=== PATIENT | male | born 1940 | race Caucasian/White ===

== ENCOUNTER 2021-03-28 09:14 | Observation (INO) | payer MEDICARE ==
[~2021-03-28] VITALS: Ht 177.8 cm; Wt 104.3 kg
[~2021-03-28 09:14] MED LIST: CHOL100046 PO; CYAN100019 PO; DILT180C53 PO; FURO40TA4 PO; GABA-532 PO; HYDR-3972 PO; METO-395 PO; MULT-620 PO; POTA-207 PO
[2021-03-28 10:55] LABS: BASOPHILS # (AUTO) 0.1 X10'3 (0-0.2); BASOPHILS % (AUTO) 0.4 % (0-1); EOSINOPHILS # (AUTO) 0.1 X10'3 (0-0.9); EOSINOPHILS % (AUTO) 0.7 % (0-6); HEMATOCRIT 44.8 % (42.0-52.0); HEMOGLOBIN 15.4 g/dl (14.0-17.9); LYMPHOCYTES # (AUTO) 3.8 X10'3 (1.1-4.8); LYMPHOCYTES % (AUTO) 25.8 % (21-51); MEAN CORPUSCULAR HEMOGLOBIN 32.5 PG (27.0-31.0); MEAN CORPUSCULAR HGB CONC 34.3 g/dL (33.0-36.5); MEAN CORPUSCULAR VOLUME 94.6 FL (78-98); MONOCYTES # (AUTO) 0.6 X10'3 (0-0.9); NEUTROPHILS # (AUTO) 10.1 X10'3 (1.8-7.7); NEUTROPHILS % (AUTO) 69.1 % (42-75); PLATELET COUNT 207 X10'3 (140-440); RED BLOOD COUNT 4.74 X10'6 (4.70-6.10); RED CELL DISTRIBUTION WIDTH 13.6 % (11.5-14.5); WHITE BLOOD COUNT 14.6 X10'3 (4.5-11.0)
[2021-03-28 11:09] LABS: ALANINE AMINOTRANSFERASE 25 U/L (12-78); ALBUMIN 3.9 G/DL (3.4-5.0); ALBUMIN/GLOBULIN RATIO 1.1 (1.1-1.5); ALKALINE PHOSPHATASE 96 IU/L (46-116); ANION GAP 10 (8-16); ASPARTATE AMINO TRANSFERASE 26 U/L (10-37); BILIRUBIN,TOTAL 1.7 MG/DL (0.1-1.0); BLOOD UREA NITROGEN 16 MG/DL (7-18); BUN/CREATININE RATIO 13.4 (5.4-32.0); CALCIUM 8.8 MG/DL (8.5-10.1); CHLORIDE 106 MMOL/L (99-107); CREATININE 1.19 MG/DL (0.60-1.10); GLUCOSE 108 MG/DL (70-104); POTASSIUM 3.6 MMOL/L (3.5-5.1); SODIUM 144 MMOL/L (135-145); TOTAL CARBON DIOXIDE 27.7 MMOL/L (24-32); TOTAL PROTEIN 7.5 G/DL (6.4-8.2); eGFR 59 ML/MIN
[2021-03-28] MEDS ORDERED: normal saline 1000ML IV soln IVB ONE ×2 (12:40→13:50)
[2021-03-28] MEDS ORDERED: aspirin 81mg tab.chew PO ONE (12:40)
[2021-03-28] MEDS ORDERED: nitroGLYCERIN 0.4mg SUBLingual tab SL PRN (12:40)
[2021-03-28] MEDS ORDERED: iohexol 300mg/ml 100ml inj. ONE (12:59)
[2021-03-28] MEDS ORDERED: piperacillin/tazo 3.375gm/50ml 50 ML IV ONE (13:50)
[2021-03-28] MEDS ORDERED: sincalide inj 2 MCG in normal saline 50ml IV soln 50 ML IV ONE (14:25)
[2021-03-28] MEDS ORDERED: morphine 2 MG/ML inj. syringe IV PRN ×2 (15:20)
[2021-03-28] MEDS ORDERED: acetaminophen 325mg tablet PO PRN ×2 (15:20)
[2021-03-28] MEDS ORDERED: magnesium hydroxide 30ml (MOM) UD suspension PO PRN (15:20)
[2021-03-28] MEDS ORDERED: HYDROcodone/acetaminophen 5mg/325mg tablet PO PRN (15:20)
[2021-03-28] MEDS ORDERED: mag hydrox/Alum hydrox/simeth 30ml oral suspension PO PRN (15:20)
[2021-03-28] MEDS ORDERED: HYDROcodone/acetaminophen 10/325mg tab PO PRN ×2 (15:20→17:35)
[2021-03-28] MEDS ORDERED: ondansetron/PF 4mg/2ml inj IV PRN (15:20)
[2021-03-28] MEDS ORDERED: LEVO100T9 PO (16:03)
[2021-03-28] MEDS ORDERED: WARF-55 PO (17:19)
[2021-03-28] MEDS ORDERED: DILT180C53 PO (17:22)
[2021-03-28] MEDS ORDERED: GABA-532 PO (17:22)
[2021-03-28 18:36] LABS: LIPASE < 50 U/L (73-393)
[2021-03-28] MEDS ORDERED: warfarin 5mg tablet PO ONE (21:00)
--- NOTE | 2021-03-28 21:25 | NUR ---
CALLED PHARMACY CONCERNING PT'S COUMADIN. THEY ARE GETTING MED READY
[2021-03-28] MEDS: gabapentin 300mg capsule PO SCH (21:30)
[2021-03-28] MEDS: diltiazem CD 180mg cap (once-daily) PO SCH (21:30)
[2021-03-28] MEDS: docusate sod 100mg capsule PO SCH (21:30)
--- NOTE | 2021-03-28 22:00 | NUR ---
Received report from [facility] in the ER, patient arrived at the PCU unit at about 2245. Vital signs were check and patient was in a stable condition. No signs of distress was noted.
[2021-03-28 23:00] VITALS: BP 136/70
[2021-03-29 02:00] VITALS: BP 128/74
--- NOTE | 2021-03-29 06:29 | NUR ---
Problems reprioritized. Patient report given, questions answered & plan of care reviewed with Maude.
[2021-03-29 07:00] VITALS: BP 132/61
[2021-03-29 07:03] LABS: BASOPHILS % (AUTO) 0.5 % (0-1); EOSINOPHILS # (AUTO) 0.1 X10'3 (0-0.9); HEMOGLOBIN 13.6 g/dl (14.0-17.9); LYMPHOCYTES # (AUTO) 2.6 X10'3 (1.1-4.8); LYMPHOCYTES % (AUTO) 26.8 % (21-51); MEAN CORPUSCULAR HEMOGLOBIN 32.9 PG (27.0-31.0); MEAN CORPUSCULAR VOLUME 94.1 FL (78-98); MEAN PLATELET VOLUME 8.3 FL (7.4-10.4); MONOCYTES # (AUTO) 0.7 X10'3 (0-0.9); MONOCYTES % (AUTO) 7.5 % (2-12); NEUTROPHILS # (AUTO) 6.1 X10'3 (1.8-7.7); NEUTROPHILS % (AUTO) 64.2 % (42-75); PLATELET COUNT 179 X10'3 (140-440); RED BLOOD COUNT 4.14 X10'6 (4.70-6.10); RED CELL DISTRIBUTION WIDTH 13.5 % (11.5-14.5); WHITE BLOOD COUNT 9.5 X10'3 (4.5-11.0)
--- NOTE | 2021-03-29 07:21 | NUR ---
Patient in room PCU 3012. I have received report from Roger GALLO and had the opportunity to ask questions and assume patient care.
[2021-03-29 07:43] LABS: ALANINE AMINOTRANSFERASE 15 U/L (12-78); ALBUMIN 3.1 G/DL (3.4-5.0); ALBUMIN/GLOBULIN RATIO 0.9 (1.1-1.5); ALKALINE PHOSPHATASE 76 IU/L (46-116); ANION GAP 9 (8-16); ASPARTATE AMINO TRANSFERASE 25 U/L (10-37); BILIRUBIN,TOTAL 2.6 MG/DL (0.1-1.0); BLOOD UREA NITROGEN 11 MG/DL (7-18); BUN/CREATININE RATIO 10.2 (5.4-32.0); CALCIUM 8.5 MG/DL (8.5-10.1); CHLORIDE 104 MMOL/L (99-107); CREATININE 1.08 MG/DL (0.60-1.10); GLUCOSE 95 MG/DL (70-104); SODIUM 139 MMOL/L (135-145); TOTAL CARBON DIOXIDE 25.9 MMOL/L (24-32); TOTAL PROTEIN 6.4 G/DL (6.4-8.2); eGFR 65 ML/MIN
[2021-03-29 07:44] LABS: POTASSIUM 3.4 MMOL/L (3.5-5.1)
[2021-03-29] MEDS ORDERED: levoTHYROXINE 100mcg tablet PO SCH (08:00)
[2021-03-29] MEDS ORDERED: cholecalciferol (vitamin D3) 1,000 unit (25mcg) tablet PO SCH (08:00)
[2021-03-29] MEDS ORDERED: cyanocobalamin 500mcg tablet PO SCH (08:00)
[2021-03-29] MEDS ORDERED: potassium Cl 20 mEq SR tablet PO SCH (08:00)
[2021-03-29] MEDS ORDERED: metoprolol succinate 25mg (24-HOUR) SR. Tablet PO SCH (08:00)
[2021-03-29] MEDS ORDERED: furosemide 40mg tablet PO SCH (08:00)
[2021-03-29] MEDS ORDERED: multivitamins, therapeutics tablet PO SCH (08:00)
[2021-03-29] MEDS: docusate sod 100mg capsule PO SCH (08:44)
[2021-03-29] MEDS: diltiazem CD 180mg cap (once-daily) PO SCH (08:44)
[2021-03-29] MEDS: gabapentin 300mg capsule PO SCH (08:46)
--- NOTE | 2021-03-29 11:59 | NUR ---
patient is stable for discharge per MD orders. All discharge instructions reviewed with patient and all questions answered. Follow up appointment per patient's . PIV discontinued, cannula intact. audience development manager discontinued. Belongings collected and sent with patient. wheeled to lobby via wheelchair, comfortable, not in any distress.
--- NOTE | 2021-03-29 12:14 | NUR ---
discharge instructions were given and explained to patient and patient's prior to discharge.
== END 2021-03-29 12:25 | disposition home or self-care (01) ==
LOC: ER 09:15 → ED HOLD 15:19 → PCU 3S 23:10
PROVIDERS: ADMIT Internal Medicine; ATTEND Internal Medicine
DX: R07.89 Other chest pain (principal); Z20.822 Contact with and (suspected) exposure to COVID-19; R10.13 Epigastric pain; K80.10 Calculus of gallbladder with chronic cholecystitis without obstruction; I48.91 Unspecified atrial fibrillation; J18.1 Lobar pneumonia, unspecified organism; G62.9 Polyneuropathy, unspecified; I11.0 Hypertensive heart disease with heart failure; I50.9 Heart failure, unspecified; E89.0 Postprocedural hypothyroidism; D68.2 Hereditary deficiency of other clotting factors; Z79.01 Long term (current) use of anticoagulants; Z79.899 Other long term (current) drug therapy; Z96.619 Presence of unspecified artificial shoulder joint
CPT/HCPCS: 36415; 71045; 74177; 78226; 80053; 83605; 83690; 83880; 84145; 84484; 85025; 85610; 87040; 87081; 87635; 93005; 96365; 96366; 99285; A9537; G0378; J2543; J7030; Q9967

== ENCOUNTER 2023-02-04 06:33 | Day surgery (SDC) | payer MEDICARE ==
[2023-01-31 14:18] LABS: BASOPHILS # (AUTO) 0.1 X10'3 (0-0.2); EOSINOPHILS # (AUTO) 0.1 X10'3 (0-0.9); EOSINOPHILS % (AUTO) 0.8 % (0-6); MEAN CORPUSCULAR HEMOGLOBIN 32.3 PG (27.0-31.0)
[2023-01-31 14:19] LABS: BASOPHILS % (AUTO) 0.6 % (0-1); HEMATOCRIT 45.5 % (42.0-52.0); HEMOGLOBIN 15.3 g/dl (14.0-17.9); LYMPHOCYTES # (AUTO) 8.3 X10'3 (1.1-4.8); LYMPHOCYTES % (AUTO) 49.9 % (21-51); MEAN CORPUSCULAR HGB CONC 33.7 g/dL (33.0-36.5); MEAN CORPUSCULAR VOLUME 96.1 FL (78-98); MEAN PLATELET VOLUME 8.2 FL (7.4-10.4); MONOCYTES # (AUTO) 0.6 X10'3 (0-0.9); MONOCYTES % (AUTO) 3.7 % (2-12); NEUTROPHILS # (AUTO) 7.5 X10'3 (1.8-7.7); PLATELET COUNT 239 X10'3 (140-440); RED BLOOD COUNT 4.73 X10'6 (4.70-6.10); RED CELL DISTRIBUTION WIDTH 13.9 % (11.5-14.5); WHITE BLOOD COUNT 16.6 X10'3 (4.5-11.0)
[2023-01-31 14:29] LABS: APTT 30 SECONDS (22-32); INR 1.1 INR; PROTHROMBIN TIME 11.4 SECONDS (9.0-12.0)
[2023-01-31 14:33] LABS: ALBUMIN 3.4 G/DL (3.4-5.0); ANION GAP 7 (8-16); BLOOD UREA NITROGEN 13 MG/DL (7-18); BUN/CREATININE RATIO 10.7 (10.0-20.0); CALCIUM 8.9 MG/DL (8.5-10.1); CHLORIDE 104 MMOL/L (99-107); CHOL/HDL RATIO 4.3 (0.00-4.99); CHOLESTEROL 160 MG/DL (0-200); CREATININE 1.21 MG/DL (0.60-1.10); GLUCOSE 131 MG/DL (70-104); HDL CHOLESTEROL 37 MG/DL (35-60); LDL CHOLESTEROL 95 MG/DL (50-100); POTASSIUM 3.6 MMOL/L (3.5-5.1); SODIUM 140 MMOL/L (135-145); TOTAL CARBON DIOXIDE 29.3 MMOL/L (24-32); TRIGLYCERIDES 211 MG/DL (20-135); eGFR 57 ML/MIN
[2023-01-31 18:05] LABS: PLATELET ESTIMATE NORMAL; TOTAL CELLS COUNTED 100
[2023-01-31 18:06] LABS: SMUDGE CELLS 1+
[~2023-02-04] VITALS: Ht 177.8 cm; Wt 102.6 kg
[2023-02-04] VITALS (14 sets, daily range): BP systolic 119–138; BP diastolic 64–77; PULSE 70–74; RESP 11–20; TEMP 98; O2SAT 89–97
[~2023-02-04 06:33] MED LIST changes: +LEVO100T9 PO; +WARF-55 PO
[2023-02-04] MEDS ORDERED: diphenhydrAMINE 25mg capsule PO PRN (06:50)
[2023-02-04] MEDS ORDERED: normal saline 1,000 ML IV SCH (06:50)
[2023-02-04] MEDS ORDERED: LORazepam 0.5 MG tablet PO PRN (06:50)
[2023-02-04] MEDS ORDERED: LEVO150T8 PO (06:56)
[2023-02-04] MEDS ORDERED: WARF1TAB83 PO (06:59)
[2023-02-04] MEDS ORDERED: ENOX100D5 SQ (07:03)
[2023-02-04] MEDS ORDERED: fentaNYL/PF 50MCG/1 ML 2ML syringe ONE (08:05)
[2023-02-04] MEDS ORDERED: LIDOcaine 1% (10mg/ml) 2ml vial ONE (08:05)
[2023-02-04] MEDS ORDERED: verapamil 2.5 mg/ml inj IV ONE (08:05)
[2023-02-04] MEDS ORDERED: midazolam 1 mg/ML 2ml injection ONE (08:05)
[2023-02-04] MEDS ORDERED: iohexol 350MG/ML 100ml bottle IV ONE (08:06)
[2023-02-04] MEDS ORDERED: heparin 1,000unit/ml 10ml vial 10 ML ONE (08:06)
[2023-02-04] MEDS ORDERED: nitroGLYCERIN 500mcg/5mL D5W 5 ML IV ONE (08:16)
[2023-02-04] MEDS ORDERED: LIDOcaine 1% (10mg/ml)w/preservative inj. 20ml MDV ONE (09:27)
[2023-02-04] MEDS ORDERED: ondansetron/PF 4mg/2ml inj IV PRN (10:40)
[2023-02-04] MEDS ORDERED: HYDROcodone/acetaminophen 10/325mg tab PO PRN (10:40)
[2023-02-04] MEDS ORDERED: proCHLORperazine 10 MG/2 ml inj IV PRN (10:40)
[2023-02-04] MEDS ORDERED: HYDROcodone/acetaminophen 5mg/325mg tablet PO PRN (10:40)
[2023-02-04] MEDS ORDERED: OXAZEpam 15mg capsule PO PRN (10:40)
[2023-02-04 11:58] LABS: ISTAT HGB ART 11.9 g/dl (14.0-17.9); ISTAT Hct ART 35 %PCV (42-52); ISTAT O2 SATURATION ARTERIAL 96 % (95-98); ISTAT SOURCE BLNK
[2023-02-04 11:58] LABS: ISTAT HGB MIX 11.9 g/dl (14.0-17.9); ISTAT HGB MIX 12.6 g/dl (14.0-17.9); ISTAT Hct MIX 35 %PCV (42-52); ISTAT Hct MIX 37 %PCV (42-52); ISTAT O2 SATURATION MIX VENOUS 60 % (60-80); ISTAT O2 SATURATION MIX VENOUS 80 % (60-80); ISTAT SOURCE BLNK
[2023-02-04] MEDS ORDERED: gabapentin 300mg capsule PO ONE (13:50)
== END 2023-02-04 17:00 | disposition home or self-care (01) ==
LOC: SSTAY O 06:33
PROVIDERS: ATTEND Internal Medicine Interventional Cardiology
DX: I35.0 Nonrheumatic aortic (valve) stenosis (principal); I50.9 Heart failure, unspecified; I48.91 Unspecified atrial fibrillation; I42.9 Cardiomyopathy, unspecified; Z79.01 Long term (current) use of anticoagulants; Z79.899 Other long term (current) drug therapy; Z98.890 Other specified postprocedural states; I48.20 Chronic atrial fibrillation, unspecified; Z86.718 Personal history of other venous thrombosis and embolism; Z91.040 Latex allergy status
CPT/HCPCS: 36415; 80048; 80061; 82803; 85014; 85025; 85610; 85730; 93005; 93458; 99152; 99153; A6258; J1644; J2250; J3010; J3490; J7030; Q0163; Q9967; 85007; A6402; C1751; C1894

== ENCOUNTER 2023-05-02 10:57 | Outpatient (CLI) | payer MEDICARE ==
[~2023-05-02 10:57] MED LIST changes: -CYAN100019 PO; +ENOX100D5 SQ; -LEVO100T9 PO; +LEVO150T8 PO; -WARF-55 PO; +WARF1TAB83 PO
[2023-05-02 12:09] LABS: BASOPHILS # (AUTO) 0.1 X10'3 (0-0.2); EOSINOPHILS # (AUTO) 0.1 X10'3 (0-0.9); MONOCYTES # (AUTO) 0.7 X10'3 (0-0.9)
[2023-05-02 12:11] LABS: BASOPHILS % (AUTO) 0.5 % (0-1); EOSINOPHILS % (AUTO) 0.8 % (0-6); HEMATOCRIT 44.7 % (42.0-52.0); HEMOGLOBIN 15.2 g/dl (14.0-17.9); LYMPHOCYTES % (AUTO) 51.5 % (21-51); MEAN CORPUSCULAR HEMOGLOBIN 31.9 PG (27.0-31.0); MEAN CORPUSCULAR HGB CONC 33.9 g/dL (33.0-36.5); MEAN CORPUSCULAR VOLUME 93.9 FL (78-98); MEAN PLATELET VOLUME 8.5 FL (7.4-10.4); MONOCYTES % (AUTO) 5.8 % (2-12); NEUTROPHILS # (AUTO) 4.8 X10'3 (1.8-7.7); NEUTROPHILS % (AUTO) 41.4 % (42-75); PLATELET COUNT 196 X10'3 (140-440); RED BLOOD COUNT 4.76 X10'6 (4.70-6.10); RED CELL DISTRIBUTION WIDTH 13.1 % (11.5-14.5); WHITE BLOOD COUNT 11.6 X10'3 (4.5-11.0)
[2023-05-02 12:16] LABS: APTT 33 SECONDS (22-32); INR 1.6 INR; PROTHROMBIN TIME 16.3 SECONDS (9.0-12.0)
[2023-05-02 12:25] LABS: ALANINE AMINOTRANSFERASE 20 U/L (12-78); ALBUMIN 3.2 G/DL (3.4-5.0); ALBUMIN/GLOBULIN RATIO 0.9 (1.1-1.5); ALKALINE PHOSPHATASE 84 IU/L (46-116); ANION GAP 6 (8-16); ASPARTATE AMINO TRANSFERASE 20 U/L (10-37); BILIRUBIN,TOTAL 0.9 MG/DL (0.1-1.0); BLOOD UREA NITROGEN 23 MG/DL (7-18); BUN/CREATININE RATIO 17.7 (10.0-20.0); CALCIUM 8.6 MG/DL (8.5-10.1); CHLORIDE 105 MMOL/L (99-107); GLUCOSE 121 MG/DL (70-104); POTASSIUM 3.9 MMOL/L (3.5-5.1); PRO BRAIN NATRIURETIC PEPTIDE 545 PG/ML (0-450); SODIUM 141 MMOL/L (135-145); TOTAL CARBON DIOXIDE 29.8 MMOL/L (24-32); TOTAL PROTEIN 6.7 G/DL (6.4-8.2); eGFR 53 ML/MIN
[2023-05-02] MEDS ORDERED: IODIXANOL 320 MG/ML INFUS..BTL 100ML IV ONE (12:37)
== END 2023-05-02 23:59 | disposition home or self-care (01) ==
LOC: RAD 10:57
PROVIDERS: ATTEND Internal Medicine Cardiovascular Disease
DX: K80.20 Calculus of gallbladder without cholecystitis without obstruction (principal); K57.90 Diverticulosis of intestine, part unspecified, without perforation or abscess without bleeding; I35.0 Nonrheumatic aortic (valve) stenosis; R06.02 Shortness of breath; I65.29 Occlusion and stenosis of unspecified carotid artery; I77.810 Thoracic aortic ectasia; I70.0 Atherosclerosis of aorta; I51.7 Cardiomegaly; R59.1 Generalized enlarged lymph nodes; J43.2 Centrilobular emphysema; J98.4 Other disorders of lung; N28.1 Cyst of kidney, acquired; K44.9 Diaphragmatic hernia without obstruction or gangrene; N32.89 Other specified disorders of bladder; M16.11 Unilateral primary osteoarthritis, right hip; M47.819 Spondylosis without myelopathy or radiculopathy, site unspecified; Z95.0 Presence of cardiac pacemaker; Z96.642 Presence of left artificial hip joint
CPT/HCPCS: 36415; 71046; 71275; 74174; 75572; 80053; 83880; 85025; 85610; 85730; 94010; 94727; 94729; J3490; Q9967

== ENCOUNTER 2023-05-06 06:50 | Emergency (ER) | payer MEDICARE ==
[~2023-05-06] VITALS: Ht 177.8 cm; Wt 103.2 kg
[2023-05-06 06:52] VITALS: BP 93/69; PULSE 70; RESP 18; TEMP 97.9; O2SAT 98
== END 2023-05-06 10:28 | disposition home or self-care (01) ==
LOC: ER 06:51
DX: M25.512 Pain in left shoulder (principal); I11.0 Hypertensive heart disease with heart failure; Z91.040 Latex allergy status; Z88.8 Allergy status to other drugs, medicaments and biological substances; Z79.899 Other long term (current) drug therapy; W19.XXXA Unspecified fall, initial encounter; Y93.89 Activity, other specified; Y92.89 Other specified places as the place of occurrence of the external cause; Y99.8 Other external cause status
CPT/HCPCS: 29105; 73030; 73080; 99284; A4565